=== PATIENT | female | born 1975 | race Caucasian/White ===

== ENCOUNTER 2016-04-17 12:26 | Emergency (ER) | payer OTHER ==
[~2016-04-17] VITALS: Wt 68.9 kg
[~2016-04-17 12:26] MED LIST: PREN-39 PO
[2016-04-17] MEDS ORDERED: ACYCLOVIR IVPB ONE (16:00)
[2016-04-17] MEDS ORDERED: DEXTROSE 5% IVPB ONE (16:00)
--- NOTE | 2016-04-17 16:21 | RADRPT ---
PROCEDURE: XR Chest. CLINICAL INDICATION: chest pain TECHNIQUE: Single frontal view of the chest was obtained COMPARISON: None FINDINGS: The heart and mediastinum are within normal limits. There is no focal infiltrate. There is an ill-defined calcific structure overlying the left mid lung measuring 1.1 cm. There is no pleural effusion or pneumothorax. RPTAT: AA IMPRESSION: Ill-defined calcific structure overlying the left mid lung. Further evaluation with CT is recommend ed. No focal infiltrate. .Mohan Barillas MD, MD Date Time Electronically viewed and signed by .Mohan Barillas MD, on 04/17/2016 16:21 .S/
--- NOTE | 2016-04-17 16:23 | ERD ---
ER Documentation Chief Complaint Date/Time DATE: 04/17/16 TIME: 16:20 Chief Complaint RASH SINCE TODAY. NO DISTRESS .NO STRIDOR . HPI 40-year-old female comes in with a generalized rash that she woke up with today , patient states that her children at home were recently diagnosed with chickenpox. She has not herself has not had chickenpox in the past and she is from [facility] and does not believe she was vaccinated previously. She reports tactile fever and mild headache that is frontal. Rash is itchy, and generalized. She denies abdominal pain, nausea or vomiting or diarrhea. She denies neck stiffness, photophobia. ROS All systems reviewed and are negative except as per history of present illness. Medications Home Meds Active Scripts Cephalexin* (Keflex*) 500 Mg Capsule, 500 MG PO TID for 7 Days, CAP Prov:MARGARET WEBB PA-C 04/17/16 Diphenhydramine Hcl* (Benadryl*) 25 Mg Cap, 25 MG PO Q6, #30 CAP Prov:MARGARET WEBB PA-C 04/17/16 Acyclovir* (Zovirax*) 800 Mg Tablet, 800 MG PO QID for 5 Days, TAB Prov:MARGARET WEBB PA-C 04/17/16 Reported Medications Vits W-Ca,Fe,Fa(<1MG) ( Vitamins) 1 Tab Tablet, 1 TAB PO 12/21/13 Allergies Allergies: Coded Allergies: No Known Allergy (Unverified , 12/21/13) PMhx/Soc Medical and Surgical Hx: pt denies Medical Hx, pt denies Surgical Hx Physical Exam Vitals Vital Signs Date Time Temp Pulse Resp B/P Pulse Ox O2 Delivery O2 Flow Rate FiO2 04/17/16 12:38 97.9 68 20 126/87 98 Physical Exam General: Well-developed, well-nourished. The patient appears in no acute distress. HEENT: Head is normocephalic, atraumatic. No scleral icterus. Pupils are equal , round, and reactive. Oral mucous membranes are moist. No pharyngeal erythema. Neck: Supple. Nontender. Lungs: Clear to auscultation. Normal air movement. Heart: Regular rate and rhythm. S1 and S2 are normal. No murmurs, gallops, or rubs. Abdomen: Soft, nontender, nondistended. Bowel sounds are normoactive. Extremities: No clubbing or cyanosis. Normal pulses. Moving extremities x 4. No weakness. Neurologic: Alert and oriented 3. No focal deficits. Skin: Generalized rash that spares the palms and soles of the feet. It is erythematous with a slight vesicular head to them. No scabs. Result Diagram: 04/17/16 1610 04/17/16 1610 Results 24 hrs Laboratory Tests Test 04/17/16 16:10 Alanine Aminotransferase (ALT/SGPT) 144IU/L Albumin 4.2g/dl Albumin/Globulin Ratio 1.10 Alkaline Phosphatase 102IU/L Anion Gap 20 Aspartate Amino Transf (AST/SGOT) 68IU/L Basophils # 0.010^3/ul Basophils % 0.5% Blood Urea Nitrogen 9mg/dl Calcium Level 9.2mg/dl Carbon Dioxide Level 23mmol/L Chloride Level 104mmol/L Creatinine 0.64mg/dl Direct Bilirubin 0.00mg/dl Eosinophils # 0.110^3/ul Eosinophils % 2.7% Globulin 3.80g/dl Glucose Level 104mg/dl Hematocrit 43.8% Hemoglobin 14.9g/dl Indirect Bilirubin 0.3mg/dl Lipase 60U/L Lymphocytes # 1.510^3/ul Lymphocytes % 31.1% Mean Corpuscular Hemoglobin 29.8pg Mean Corpuscular Hemoglobin Concent 33.9g/dl Mean Corpuscular Volume 87.7fl Mean Platelet Volume 8.6fl Monocytes # 0.710^3/ul Monocytes % 14.0% Neutrophils # 2.410^3/ul Neutrophils % 51.7% Nucleated Red Blood Cells # 0.010^3/ul Nucleated Red Blood Cells % 0.0/100WBC Platelet Count 65275^3/UL Potassium Level 3.4mmol/L Red Blood Count 5.0010^6/ul Red Cell Distribution Width 13.9% Sodium Level 144mmol/L Total Bilirubin 0.3mg/dl Total Protein 8.0g/dl Urine Bacteria MANY Urine Bilirubin 1+ Urine Clarity CLOUDY Urine Color LT. YELLOW Urine Epithelial Cells MANY Urine Glucose NEGATIVE% Urine Hemoglobin 3+ Urine Ictotest NEGATIVE Urine Ketones 15 Urine Leukocyte Esterase 3+ Urine Microscopic RBC 25-50/HPF Urine Microscopic WBC 10-25/HPF Urine Nitrite NEGATIVE Urine Specific Scheller 1.025 Urine Total Protein TRACE Urine Urobilinogen >8.0 E.U./dL Urine pH 6.0 White Blood Count 4.710^3/ul Current Medications Medications (Trade) Dose Ordered Sig/Jay Route PRN Reason Start Time Stop Time Status Last Admin Dose Admin Acyclovir/Dextrose (Zovirax/D5W) 100 ml @ 100 mls/hr ONCE ONCE IVPB 04/17/16 16:00 04/17/16 16:59 DC 04/17/16 17:23 Cephalexin (Keflex) 500 mg ONCE ONCE PO 04/17/16 18:00 04/17/16 18:01 DC 04/17/16 18:17 PROCEDURE: XR Chest. CLINICAL INDICATION: chest pain TECHNIQUE: Single frontal view of the chest was obtained COMPARISON: None FINDINGS: The heart and mediastinum are within normal limits. There is no focal infiltrate. There is an ill-defined calcific structure overlying the left mid lung measuring 1.1 cm. There is no pleural effusion or pneumothorax. RPTAT: AA IMPRESSION: Ill-defined calcific structure overlying the left mid lung. Further evaluation with CT is recommended. No focal infiltrate. .Mohan Barillas MD, MD Date Time Electronically viewed and signed by .Mohan Barillas MD, MD on 04/17/2016 16: 21 Procedures/MDM ED course: She was seen and evaluated, patient was kept isolated, blood, IV line was established as well as urine. Acyclovir 680 mg IV was administered. Patient was also given Keflex 500 mg for a urinary tract infection. MDM: 40-year-old female comes in with chicken pox, as well as a urinary tract infection. As she had a workup done, CBC is unremarkable, there is no evidence of acute hepatitis, no evidence of pneumonia, no evidence of encephalitis. She does have sick contacts at home with chickenpox, and will be started on acyclovir orally at home. She does not have HIV and the patient is not , she has no history of immunocompromise and I feel that the patient can safely be discharged home on oral antiviral medication. No signs of meningitis, encephalitis, hepatitis, pneumonia, although they were considered part of my differential diagnosis. Departure Diagnosis: Primary Impression: Chicken pox Additional Impression: UTI (urinary tract infection) Condition: Good MARGARET WEBB PA-C Apr 17, 2016 16:22
[2016-04-17 16:32] LABS: ADD UMIC YES; URINE BILIRUBIN (Dip) 1+ (NEGATIVE); URINE BLOOD (Dip) 3+ (NEGATIVE); URINE COLOR LT. YELLOW (YELLOW); URINE GLUCOSE (Dip) NEGATIVE (NEGATIVE); URINE KETONES (Dip) 15 (NEGATIVE); URINE LEUKOCYTE ESTERASE (Dip) 3+ (NEGATIVE); URINE NITRITE (Dip) NEGATIVE (NEGATIVE); URINE TOTAL PROTEIN (Dip) TRACE (NEGATIVE); URINE UROBILINOGEN (Dip) >8.0 E.U./dL (0.1-1.0)
[2016-04-17 16:34] LABS: BASOPHILS % 0.5 % (0.0-2.0); EOSINOPHILS # 0.1 10^3/ul (0.0-0.5); EOSINOPHILS % 2.7 % (0.0-7.0); HEMATOCRIT 43.8 % (37.0-47.0); HEMOGLOBIN 14.9 g/dl (12.0-16.0); LYMPHOCYTES # 1.5 10^3/ul (0.8-2.9); LYMPHOCYTES % 31.1 % (15.0-51.0); MEAN CORPUSCULAR HEMOGLOBIN 29.8 pg (29.0-33.0); MEAN CORPUSCULAR HGB CONC 33.9 g/dl (32.0-37.0); MEAN CORPUSCULAR VOLUME 87.7 fl (82.0-101.0); MEAN PLATELET VOLUME 8.6 fl (7.4-10.4); MONOCYTE # 0.7 10^3/ul (0.3-0.9); NEUTROPHIL # 2.4 10^3/ul (1.6-7.5); NEUTROPHILS % 51.7 % (39.0-77.0); PLATELET COUNT 244 10^3/UL (140-440); RED CELL DISTRIBUTION WIDTH 13.9 % (11.5-14.5); UNCORRECTED WBC 4.7 10^3/ul (4.8-10.8); WHITE BLOOD COUNT 4.7 10^3/ul (4.8-10.8)
[2016-04-17 16:38] LABS: CONDITION 1
[2016-04-17 16:50] LABS: ALBUMIN 4.2 g/dl (3.3-4.9)
[2016-04-17 16:51] LABS: POTASSIUM 3.4 mmol/L (3.5-5.1)
[2016-04-17 16:52] LABS: BACTERIA,URINE MANY; ICTOTEST NEGATIVE (NEGATIVE); URINE RBCS 25-50 /HPF (0)
[2016-04-17 16:53] LABS: BILIRUBIN,INDIRECT 0.3 mg/dl (0-1.1); BILIRUBIN,TOTAL 0.3 mg/dl (0.2-1.3); CREATININE 0.64 mg/dl (0.44-1.00)
[2016-04-17 16:54] LABS: CALCIUM 9.2 mg/dl (8.4-10.2)
[2016-04-17 16:59] LABS: ALBUMIN/GLOBULIN RATIO 1.1
--- NOTE | 2016-04-17 17:33 | RADRPT ---
PROCEDURE: CT brain without contrast CLINICAL INDICATION: Headaches. Chicken pox TECHNIQUE: A CT of the brain was performed utilizing axial sections from the skull base through th e vertex without contrast. Sagittal and coronal images were also reformatted. The exam CTDIvol = 44. 68 mGy and DLP = 720.23 mGy-cm. COMPARISON: None available FINDINGS: No acute intracranial hemorrhage is identified. There is no mass effect or midline shift. No extra -axial fluid collection is seen. The ventricles and sulci are within normal limits for size and con figuration. The density of the brain is within normal limits. Soriano-white differentiation is preser carla. The osseous structures are unremarkable. Opacification of the left ethmoid and maxillary sinuses mo st compatible with an ostiomeatal unit obstruction. The remaining paranasal sinuses and mastoid air cells are clear. The frontal sinuses are not developed RPTAT:HJJR IMPRESSION: 1. Unremarkable noncontrast CT of the brain. 2. Left anterior ethmoid and maxillary sinus opacification. Physician Marion Date Time Electronically viewed and signed by Physician Marion on 04/17/2016 17:32 /
[2016-04-17] MEDS ORDERED: CEPH-443 PO (17:44)
[2016-04-17] MEDS ORDERED: BEN25 PO (17:44)
[2016-04-17] MEDS ORDERED: ACYC800T57 PO (17:44)
[2016-04-17] MEDS ORDERED: CEPHALEXIN 500 MG CAP PO ONE (18:00)
[2016-04-17 18:51] VITALS: BP 126/77; PULSE 89; RESP 18; TEMP 98.5
== END 2016-04-17 18:51 | disposition home or self-care (01) ==
LOC: FTE 12:26
DX: B01.9 Varicella without complication (principal); N39.0 Urinary tract infection, site not specified; R51 Headache
CPT/HCPCS: 70450; 71010; 80053; 81001; 83690; 85025; J0133; Z7610; 36415; 81003; 96374